=== PATIENT | male | born 1980 | race African-American/Black ===

== ENCOUNTER 2021-11-27 02:41 | Emergency (ER) | payer MEDICAID, SELFPAY ==
[2021-11-27 02:49] VITALS: BP 179/105; PULSE 115; RESP 15; TEMP 36.6; O2SAT 98; BMI 23.8
== END 2021-11-27 06:52 | disposition left against medical advice (07) ==
LOC: HO.ED 06:34
PROVIDERS: Emergency Provider Emergency Medicine
DX: L23.6 Allergic contact dermatitis due to food in contact with the skin (principal)
CPT/HCPCS: 99281

== ENCOUNTER 2023-07-21 09:09 | Emergency (ER) | payer MEDICAID, SELFPAY ==
--- NOTE | ~2023-07-21 | XR_ITS ---
EXAMINATION: XR CHEST CLINICAL INFORMATION: Cough. COMPARISON: None available. TECHNIQUE: 2 views of the chest were obtained. FINDINGS: No significant abnormality is noted involving the heart, lungs, mediastinum, bony thorax or soft tissues. XR/XR chest 2V IMPRESSION: Unremarkable chest examination.
[2023-07-21 09:12] VITALS: BP 146/113; PULSE 84; RESP 18; TEMP 37.1; O2SAT 99; BMI 22.7
[2023-07-21 10:09] LABS: COVID-19 Test Positive (Negative); IDNOW Serial# 08D9AD1C; IDNOW Serial# 152EDE1D; Influenza A Negative (Negative); Influenza B2 Negative (Negative)
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
== END 2023-07-21 11:55 | disposition home or self-care (01) ==
PROVIDERS: Emergency Provider Emergency Medicine Emergency Medical Services
DX: U07.1 COVID-19 (principal); R51.9 Headache, unspecified; R11.2 Nausea with vomiting, unspecified; R05.9 Cough, unspecified
CPT/HCPCS: 71046; 87502; 87635; 99282; 99283

== ENCOUNTER 2023-09-13 14:47 | Emergency (ER) | payer SELFPAY ==
--- NOTE | ~2023-09-13 | XR_ITS ---
EXAMINATION: XR LUMBOSACRAL SPINE CLINICAL INFORMATION: Back pain. COMPARISON: None available. TECHNIQUE: Three views of the lumbosacral spine. FINDINGS: No evidence of acute compression deformity or subluxation. Intervertebral disc heights are maintained. Mild facet arthropathy at L5-S1. Symmetric SI joints. No significant paraspinal soft tissue abnormality. XR/XR lumbar spine 2-3V IMPRESSION: 1. No acute fractures or malalignment. 2. Mild facet arthropathy at L5-S1.
[2023-09-13 15:07] VITALS: BP 134/101; PULSE 96; RESP 20; TEMP 37; O2SAT 97; BMI 22.6
--- NOTE | 2023-09-13 15:11 | ED.BACK ---
HPI - Back Pain/Injury General Chief Complaint: Back Pain/Injury Stated Complaint: LOWER BACK PAIN Time Seen by Provider: 09/13/23 16:22 Source: patient and RN notes reviewed Mode of arrival: ambulatory Limitations: no limitations History of Present Illness HPI Narrative: This is a [id number], with no known medical problems, who presents to the emergency department with complaints of low back pain since . Patient states that on while he was standing from a seated position he suddenly developed right-sided back pain. He states that the pain has been constant, and worsens with movement and with palpation. He denies any pain radiation. Denies any urinary or bowel retention or incontinence. No fevers, chills, chest pain, shortness of breath, abdominal pain, nausea, vomiting or diarrhea. No urinary symptoms. Denies history of IV drug use. MD elicited complaint: back pain Pertinent past history: prior back pain Onset (ago): day(s) Severity: moderate Similar Symptoms Previously: No Quality: stabbing Location: lumbar spine Radiation: none Exacerbating factors: none Relieving factors: none Associated symptoms: denies other symptoms Related Data Previous Rx's ?Medication ?Instructions ?Recorded acetaminophen 325 mg tablet 650 mg (2 x 325 mg) PO Q6H PRN 07/21/23 (Tylenol) pain #30 tabs ondansetron 4 mg disintegrating 4 mg PO Q6-8H PRN nausea and 07/21/23 tablet vomiting #14 tabs ibuprofen 600 mg tablet 600 mg PO Q6H PRN pain #30 tabs 09/13/23 lidocaine 5 % topical patch 1 patch topical DAILY #30 ea 09/13/23 (Lidoderm) Allergies Allergy/AdvReac Type Severity Reaction Status Date / Time No Known Allergies Allergy Verified 09/13/23 15:10 Review of Systems Review of Systems: Yes all other systems are reviewed and are negative Constitutional: Constitutional: Reports as per [facility] Social History Social History Advance Directives: No Advance Directives Information Provided: No Physical Exam Vital Signs: Vital Signs: Last Vital Signs Temp 98.4 F 09/13/23 18:15 Pulse 88 09/13/23 18:15 Resp 16 09/13/23 18:15 BP 142/101 H 09/13/23 18:15 Pulse Ox 96 09/13/23 18:15 O2 Del Method Room Air 09/13/23 18:15 BMI result Body Mass Index 22.6 Const: General: cooperative, comfortable and no acute distress Orientation/consciousness: patient oriented x3 Limitations: no limitations HEENT: Head: Yes normal to inspection, Yes normocephalic and Yes atraumatic Ears: hearing grossly normal bilaterally General nose exam: Normal external nose present Face and sinus: Yes normal facial exam Mouth: Normal oral and palatal mucosa present, oropharynx normal and moist mucous membranes Throat: Yes posterior oropharynx normal Eyes: General: appearance normal, both eyes and all related structures Eyelids: Yes eyelids normal Conjunctivae: conjunctivae normal Sclerae: sclerae normal Pupils: Equal, round and reactive pupils present EOM: EOMs intact bilaterally Neck: Neck: Yes normal visual inspection, Yes full ROM and Yes no lymphadenopathy Lymphatic: no lymphadenopathy noted Chest: Chest palpation & inspection: normal inspection of the chest Resp: Effort & Inspection: normal respiratory effort and able to speak in complete sentences Auscultation: clear to auscultation bilaterally, no crackles, no rales, no rhonchi and no wheezes Cardio: Rate: regular rate Rhythm: regular rhythm Heart sounds: S1 normal heart sound present and S2 normal heart sound present GI: Inspection: Yes normal to inspection Back/Spine/Pelvis: Other: Tenderness to palpation along the left low back, worsening with bending. Strength 5/5 in lower extremities. No CVA tenderness Skin: General skin exam: no rashes or lesions noted Trauma: no lacerations or abrasions Wounds: no wounds Neuro: General: patient oriented x3 and moves all extremities Cranial nerves: Yes Equal, round and reactive pupils present Extrem: General: Yes normal to inspection Right upper extremity: normal to inspection Left upper extremity: normal to inspection Right lower extremity: normal to inspection Left lower extremity: normal to inspection Course Course Course Narrative: RME: 42 yold male presents to the ED Right sided back pain that is worse on movement. denies symptoms or abdominal pain. labs, uA, and lumbar xray ordered Medical Decision Making Medical Decision Making MDM Narrative: This is a 42-year-old male, with no known medical problems, presenting to the emergency department with complaints of low back pain since . On arrival, vital signs within normal limits.This patient presents with back pain most consistent with lumbago. Differential diagnoses includes lumbago versus musculoskeletal spasm / strain versus sciatica.No back pain red flags on history or physical. Presentation not consistent with malignancy (lack of history of malignancy, lack of B symptoms), fracture (no trauma, no bony tenderness to palpation), cauda equina (no bowel or urinary incontinence/retention, no saddle anesthesia, no distal weakness), AAA, viscus perforation , pulmonary embolism, renal colic, pyelonephritis (afebrile, no CVAT, no urinary symptoms). Denies history of IVDA therefore epidural abscess unlikely. X-rays were obtained, revealing Mild facet arthropathy at L5-S1. Discussed findings with patient. Discharged on ibuprofen and Lidoderm patches. Given return precautions. Differential Diagnosis Differential Diagnoses: The differential diagnosis associated with the presentation includes See above Admission/Observation Consideration of admission/observation: Escalation of care including admission/observation considered Escalation of care including admission/observation considered however given workup today not warranted at this time. Lab Data MDM Lab Attestation statement: I reviewed the patient's lab results. No leukocytosis, stable H&H, chemistry within normal limits. UA non infectious 09/13/23 15:45 09/13/23 15:45 Labs: Lab Results 09/13/23 09/13/23 Range/Units 15:45 16:19 WBC 11.0 H (4.8-10.8) X10*3/uL RBC 5.92 H (4.60-5.80) X10*6/uL Hgb 15.0 (14.0-18.0) g/dl Hct 46.3 (42.0-52.0) % MCV 78.2 L (80.0-98.0) fL MCH 25.3 L (27.0-33.0) pg MCHC 32.4 (31.0-36.0) g/dl RDW 13.0 (11.0-16.0) % Plt Count 360 (160-400) X10*3/uL MPV 9.0 L (9.4-12.4) fL Immature Gran % (Auto) 0.3 (0.0-0.4) % Neut % (Auto) 63.8 (45-73) % Lymph % (Auto) 20.7 (20-40) % [place] % (Auto) 7.2 (2-11) % Eos % (Auto) 7.3 H (0-4) % Baso % (Auto) 0.7 (0-2) % Lymph # (Auto) 2.3 (1.2-4.9) X10*3/uL [place] # (Auto) 0.8 (0.1-1.2) X10*3/uL Eos # (Auto) 0.8 H (0.0-0.4) X10*3/uL Baso # (Auto) 0.1 (0.0-0.2) X10*3/uL Abs Immat Gran (auto) 0.03 (0.00-0.03) X10*3/uL Absolute Neuts (auto) 7.0 (2.0-8.3) x10*3/uL Absolute Nucleated RBC 0.000 (0.0-0.012) X10*3/uL Nucleated RBC % (auto) 0.0 (0.0-0.2) /100WBC Sodium 142 (135-145) mmol/L Potassium 3.9 (3.3-5.1) mmol/L Chloride 103 (96-108) mmol/L Carbon Dioxide 30 H (22-29) mmol/L Anion Gap 13 (12-20) BUN 16 (9-16) mg/dL Creatinine 0.82 (0.5-1.4) mg/dL Estim Creat Clear Calc 100.0 Estimated GFR > 60 Random Glucose 71 (60-115) mg/dL Calcium 9.8 (8.4-10.2) mg/dL Total Bilirubin 0.9 (0.0-1.0) mg/dL AST 19 (5-37) U/L ALT 27 (0-40) U/L Alkaline Phosphatase 99 (39-117) U/L Total Protein 7.5 (6.5-8.0) g/dL Albumin 4.3 (3.5-5.0) g/dL Urine Color Dark Yellow Urine Appearance Clear Urine pH 6.0 (5.0-9.0) Ur Specific [place] >= 1.030 H (1.005-1.025) Urine Protein Trace (Neg-Trace) mg/dL Urine Glucose (UA) Negative (Negative) mg/dL Urine Ketones Trace (Negative) mg/dL Urine Blood Negative (Negative) Urine Nitrite Negative (Negative) Ur Leukocyte Esterase Negative (Negative) Radiology Impression Discussion of test interpretation with radiology: I have reviewed the radiologist's reading. Radiologist Impression: COMPARISON: None available. TECHNIQUE: Three views of the lumbosacral spine. FINDINGS: No evidence of acute compression deformity or subluxation. Intervertebral disc heights are maintained. Mild facet arthropathy at L5-S1. Symmetric SI joints. No significant paraspinal soft tissue abnormality. XR/XR lumbar spine 2-3V IMPRESSION: 1. No acute fractures or malalignment. 2. Mild facet arthropathy at L5-S1. Dictated By: Elaina Govea Discharge Plan Discharge Clinical Impression: Back pain Patient Disposition: Home, Self-Care Instructions: Back Pain (ED) Additional Instructions: You were seen in the emergency department due to back pain. Your x-ray shows a type of arthritis called facet arthropathy. This is where entire of your bones, this is not caused by a recent injury. You likely strained the muscles in your back causing you to have the symptoms. Please rest, ice or apply heat, gentle stretching and massage can help. Take ibuprofen and use Lidoderm patches as needed for pain. Follow-up with your primary care physician regarding this visit. If any new or worsening symptoms occur including but not limited to fevers, chills, chest pain, shortness of breath, abdominal pain, nausea, vomiting or diarrhea, numbness, tingling or weakness, or urinary/bowel incontinence or retention. Prescriptions: New ibuprofen 600 mg tablet 600 mg PO Q6H PRN (Reason: pain) Qty: 30 0RF lidocaine [Lidoderm] 5 % adhesive patch,medicated 1 patch topical DAILY Qty: 30 0RF Rx Instructions: leave on most painful area for up to 12 hrs No Action acetaminophen [Tylenol] 325 mg tablet 650 mg PO Q6H PRN (Reason: pain) Qty: 30 0RF ondansetron 4 mg tablet,disintegrating 4 mg PO Q6-8H PRN (Reason: nausea and vomiting) Qty: 14 0RF Stand Alone Forms: Work/School Release Interventions: ED Discharge Assessment Last Done: 09/13/23 18:15 Discharge Date/Time: 09/13/23 18:19 Print Language: Malagasy
--- NOTE | 2023-09-13 15:17 | MHC.EDTECH ---
Called patient for lab work in triage at [phone], No Answer
[2023-09-13 15:54] LABS: MANUAL DIFF FLAG NO
[2023-09-13 15:57] LABS: Basophils Absolute Auto 0.1 X10*3/uL (0.0-0.2); Basophils Percent Auto 0.7 % (0-2); Eosinophils Absolute Auto 0.8 X10*3/uL (0.0-0.4); Eosinophils Percent Auto 7.3 % (0-4); Hematocrit 46.3 % (42.0-52.0); Imm Gran Abs Auto 0.03 X10*3/uL (0.00-0.03); Imm Gran Pct Auto 0.3 % (0.0-0.4); Lymphocytes Absolute Auto 2.3 X10*3/uL (1.2-4.9); Lymphocytes Percent Auto 20.7 % (20-40); Mean Corpuscular HGB Conc 32.4 g/dl (31.0-36.0); Mean Corpuscular Hemoglobin 25.3 pg (27.0-33.0); Mean Corpuscular Volume 78.2 fL (80.0-98.0); Monocytes Absolute Auto 0.8 X10*3/uL (0.1-1.2); Monocytes Percent Auto 7.2 % (2-11); Neutrophils Percent Auto 63.8 % (45-73); Platelet Count 360 X10*3/uL (160-400); Red Blood Count 5.92 X10*6/uL (4.60-5.80)
[2023-09-13 16:15] LABS: Alanine Aminotransferase 27 U/L (0-40); Albumin Level 4.3 g/dL (3.5-5.0); Alkaline Phosphatase 99 U/L (39-117); Anion Gap 13 (12-20); Aspartate Amino Transferase 19 U/L (5-37); Bilirubin Total 0.9 mg/dL (0.0-1.0); Blood Urea Nitrogen 16 mg/dL (9-16); Calcium 9.8 mg/dL (8.4-10.2); Carbon Dioxide 30 mmol/L (22-29); Chloride 103 mmol/L (96-108); Estimated Glomerular Filt Rate > 60; Glucose Random 71 mg/dL (60-115); Potassium 3.9 mmol/L (3.3-5.1); Sodium 142 mmol/L (135-145); Total Protein 7.5 g/dL (6.5-8.0)
[2023-09-13 16:34] LABS: Appearance Urine Clear; Color Urine Dark Yellow; Glucose Urine UA Negative (Negative); Leukocyte Esterase Urine Negative (Negative); Nitrite Urine Negative (Negative); Specific Gravity - Urine >= 1.030 (1.005-1.025); Urine Blood Negative (Negative); Urine Ketones Trace mg/dL (Negative); Urine Protein Trace mg/dL (Neg-Trace)
[2023-09-13 18:15] VITALS: BP 142/101; PULSE 88; RESP 16; TEMP 36.9; O2SAT 96
== END 2023-09-13 18:19 | disposition home or self-care (01) ==
PROVIDERS: Physician Assistant; Emergency Provider Emergency Medicine
DX: M54.50 Low back pain, unspecified (principal); Z79.899 Other long term (current) drug therapy
CPT/HCPCS: 36415; 72100; 80053; 81003; 85025; 99282; 99283

== ENCOUNTER 2023-09-17 14:05 | Emergency (ER) | payer OTHER, SELFPAY ==
[2023-09-17 14:17] VITALS: BP 147/116; PULSE 92; RESP 19; TEMP 36.6; O2SAT 98; BMI 22.6
--- NOTE | 2023-09-17 14:19 | ED_ITS ---
HPI - Back Pain/Injury General Chief Complaint: Back Pain/Injury Stated Complaint: Back pain Time Seen by Provider: 09/17/23 14:19 Source: patient Mode of arrival: ambulatory Limitations: no limitations History of Present Illness HPI Narrative: 42 yo male presenting for re-evaluation of low back pain. He was seen here on 09/12 for acute onset of severe back pain - had labs, XR. Discharged with muscle relaxers and pain patches. His pain has been getting much better with the meds and lifestyle modifications. He has not been going to work and doing his usual heavy lifting. In order to return to work he needs a re-evaluation and note. Pain is currently /. MD elicited complaint: back pain Pertinent past history: prior back pain Onset (ago): day(s) Timing: improved Severity: mild Pain scale (0-10): 2 Similar Symptoms Previously: Yes Quality: aching Location: left lower back Radiation: none Exacerbating factors: movement and lifting Relieving factors: medication Context: while lifting and turning/twisting Associated symptoms: denies other symptoms Treatments prior to arrival: NSAIDS and other medications Work related injury: Yes Related Data Previous Rx's ?Medication ?Instructions ?Recorded acetaminophen 325 mg tablet 650 mg (2 x 325 mg) PO Q6H PRN 07/21/23 (Tylenol) pain #30 tabs ondansetron 4 mg disintegrating 4 mg PO Q6-8H PRN nausea and 07/21/23 tablet vomiting #14 tabs ibuprofen 600 mg tablet 600 mg PO Q6H PRN pain #30 tabs 09/13/23 lidocaine 5 % topical patch 1 patch topical DAILY #30 ea 09/13/23 (Lidoderm) Allergies Allergy/AdvReac Type Severity Reaction Status Date / Time No Known Allergies Allergy Verified 09/17/23 14:25 [facility] Social History Social History Advance Directives: No Physical Exam Vital Signs: Vital Signs: Last Vital Signs Temp 98 F 09/17/23 14:28 Pulse 92 09/17/23 14:28 Resp 19 09/17/23 14:28 BP 147/116 H 09/17/23 14:28 Pulse Ox 98 09/17/23 14:28 O2 Del Method Room Air 09/17/23 14:28 BMI result Body Mass Index 22.6 Appearance: Alert. Oriented X3. No acute distress. HEENT: normal inspection CVS: Normal heart rate and rhythm. Pulses normal. Respiratory: No respiratory distress. Skin: Skin warm and dry. Normal skin color. Normal skin turgor. No rashes. Back: soft tissue tenderness in the left lower lumbar area. normal ROM of the spine. Extremities: normal inspection x4. Neuro: Oriented X 3. No motor deficit. No sensory deficit. steady gait Medical Decision Making Medical Decision Making [facility] Narrative: 42 yo male presenting for re-evaluation of low back pain. No red flag symptoms of low back pain. Exam is reassuring. He is improving w/ meds. His work involves heavy lifting. He is worried it will exacerbate his pain. Agree w/ additional 2 days of limited activity and restrictions on lifting. Will continue muscle relaxers, NSAIDs, tylenol and supportive care. work note provided per request encouraged f/u with PCP. discussed high BP, monitoring at home and worrisome symptoms to prompt urgent re-evaluation stable for d/c home Differential Diagnosis Differential Diagnoses: The differential diagnosis associated with the presentation includes Inflammatory disorders, malignancy, trauma, osteoporosis, nerve root compression, radiculopathy, plexopathy, degenerative disc disease, disc herniation, spinal stenosis, sacroiliac joint dysfunction, facet joint injury, and less likely infection?like abscess or diskitis External Record Review External record reviewed: Outpatient record and Prior outpatient labs Prescription Management I considered prescription management with: Pain Medication Critical Care Time Critical Care Time Critical Care Time: No Discharge Plan Discharge Clinical Impression: Back pain Qualifiers: Back pain location: low back pain Chronicity: acute Back pain laterality: left Sciatica presence: without sciatica Qualified Code(s): M54.50 - Low back pain, unspecified Patient Disposition: Home, Self-Care Instructions: Low Back Strain (ED), Lower Back Exercises (ED) Additional Instructions: Your pain is most likely due to muscle strain and spasm. No bending, lifting or twisting. Use ice several times per day for 20 minutes at a time for the next 48 hours and then change to heat. Take medications as prescribed to help with pain and discomfort. Follow up with your Primary Care Doctor this week. If your pain worsens, if you develop new numbness, tingling, weakness, loss of function or incontinence call 911 or come back to the ER right away for evaluation. Prescriptions: No Action acetaminophen [Tylenol] 325 mg tablet 650 mg PO Q6H PRN (Reason: pain) Qty: 30 0RF ondansetron 4 mg tablet,disintegrating 4 mg PO Q6-8H PRN (Reason: nausea and vomiting) Qty: 14 0RF ibuprofen 600 mg tablet 600 mg PO Q6H PRN (Reason: pain) Qty: 30 0RF lidocaine [Lidoderm] 5 % adhesive patch,medicated 1 patch topical DAILY Qty: 30 0RF Rx Instructions: leave on most painful area for up to 12 hrs Referrals: [facility] [Primary Care Provider] - Stand Alone Forms: Work/School Release Interventions: ED Discharge Assessment Last Done: 09/17/23 14:28 Print Language: Citizen Of [place]
[2023-09-17 14:28] VITALS: BP 147/116; PULSE 92; RESP 19; TEMP 36.6; O2SAT 98
== END 2023-09-17 14:54 | disposition home or self-care (01) ==
LOC: HO.ED 14:26
PROVIDERS: Emergency Provider Emergency Medicine
DX: M54.50 Low back pain, unspecified (principal); Z79.899 Other long term (current) drug therapy
CPT/HCPCS: 99282